=== PATIENT | male | born 1960 | race Caucasian/White ===

== ENCOUNTER 2016-09-05 13:55 | Emergency (ER) | payer OTHER ==
[~2016-09-05] VITALS: Wt 90.0 kg
[2016-09-05] MEDS ORDERED: LIDOCAINE 1%/EPI (MDV) 20 ML INJ INJ STA (15:17)
[2016-09-05] MEDS ORDERED: HYDR-902 PO (15:30)
[2016-09-05] MEDS ORDERED: CLIN-73 PO (15:30)
--- NOTE | 2016-09-05 15:30 | ERD ---
ER Documentation Chief Complaint Date/Time DATE: 09/05/16 TIME: 15:27 Chief Complaint LEFT BUTTOCKS ABSCESS FOR 3 DAYS. SOME DRAINAGE. NO FEVERS HPI This patient is a 55-year-old male who presents with an area of redness and swelling to his left buttocks that he has had for 3 days. The area is getting larger and more painful and more swollen. He has noticed scant amount of purulent drainage. Denies fever. Pain is moderate to severe and worse with sitting. ROS All systems reviewed and are negative except as per history of present illness. Medications Home Meds Active Scripts Hydrocodone/Acetaminophen ([place] 10-325 Tablet) 1 Each Tablet, 1 TAB PO Q6H Y for PAIN, #20 TAB Prov:FELIX RODRIGUEZ PA-C 09/05/16 Clindamycin Hcl* (Clindamycin Hcl*) 300 Mg Capsule, 300 MG PO TID for 10 Days, CAP Prov:FELIX RODRIGUEZ PA-C 09/05/16 Reported Medications [None] No Conflict Check 05/05/13 Allergies Allergies: Coded Allergies: Penicillins (Verified Allergy, 09/04/13) PMhx/Soc History of Surgery: No Anesthesia Reaction: No Hx Neurological Disorder: No Hx Respiratory Disorders: No Hx Cardiac Disorders: No Hx Psychiatric Problems: No Hx Miscellaneous Medical Probl: Yes (right knee cellulitis) Hx Alcohol Use: No Hx Substance Use: Yes Hx Tobacco Use: Yes Smoking Status: Never smoker FmHx Family History: No diabetes Physical Exam Vitals Vital Signs Date Time Temp Pulse Resp B/P Pulse Ox O2 Delivery O2 Flow Rate FiO2 09/05/16 14:01 98.0 100 21 130/85 98 Physical Exam Const: [] Head: Atraumatic Neck: Full range of motion..~ No meningismus. Resp: Clear to auscultation bilaterally Cardio: Regular rate and rhythm, no murmurs Skin: Left buttocks has an area of erythema and induration with a fluctuant had approximately 3-4 cm in diameter it is warm and tender to palpation Results 24 hrs Current Medications Medications (Trade) Dose Ordered Sig/Jud Route PRN Reason Start Time Stop Time Status Last Admin Dose Admin Lidocaine/ Epinephrine (Xylocaine 1%/ Epi (Mdv) 20 ml) 20 ml ONCE STAT INJ 09/05/16 15:17 09/05/16 15:19 DC Procedures/MDM 55-year-old male presents with abscess formation. The area was first prepped with Betadine and then 1% lidocaine with epinephrine was used to anesthetize the wound approximately 8-9 cc. A small incision using an 11 blade was then made to open the wound up and then copious amounts of purulent drainage drained. Patient tolerated the procedure well and there were no complications upon completion the wound was appropriately dressed and bandaged. Patient was discharged with clindamycin and recommended 2 day wound check follow-up. Recommended this patient follow up with her primary care doctor within 48 hours or return to the emergency room for any worsening of symptoms. However this time I do believe there is suitable for outpatient management. I answered all their questions and they agreed with the plan and were discharged home. Departure Diagnosis: Primary Impression: Abscess Condition: Stable FELIX RODRIGUEZ PA-C Sep 05, 2016 15:29
== END 2016-09-05 16:03 | disposition home or self-care (01) ==
LOC: FTE 13:55
DX: L02.31 Cutaneous abscess of buttock (principal); Z87.891 Personal history of nicotine dependence
CPT/HCPCS: 10060; Z7502; Z7610